=== PATIENT | female | born 1990 | race Caucasian/White ===

== ENCOUNTER 2017-01-01 10:32 | Outpatient (CLI) | payer MEDICAID ==
--- NOTE | 2017-01-01 14:19 | Ultrasound Report ---
OB FOLLOWUP WITH BIOPHYSICAL PROFILE: 01/01/2017 CLINICAL INDICATION: Hypertension. TECHNIQUE: Real-time scanning was performed with medical sales representative static images obtained. LAST MENSTRUAL PERIOD 04/08/2016 Clinical Age 38 weeks 2 days US Age 38 weeks 4 days EFW [place]lock 3518 g EFW% Hadlock 69% Heart Rate 150 bpm EDC 01/13/2017 US EDC 01/11/2017 BPD [place] 38 weeks 2 days; Mean mm 94.1 HC [place] 38 weeks 3 days; Mean mm 336.0 AC [place] 38 weeks 2 days; Mean mm 344.2 FL [place] 39 weeks 1 day; Mean mm 76.5 Presentation cephalic Placental Location posterior Cervical Length 2.6 cm Amniotic Fluid 12.2 cm FINDINGS: There is a single viable intrauterine gestation, in cephalic presentation. heart rate is 150 BPM. The placenta is fundal, without evidence of previa. Amniotic fluid volume is normal, with an EWA of 12.2. By size, the fetus measures 38.6 weeks (38.3 weeks by LMP). Estimated weight by Hadlock method is 3518 grams, 69th percentile. The fetus receives 2 points for tone, 2 points for movement, 0 points for respiration, and 2 points for amniotic fluid volume, yielding a biophysical profile of 6/8. No free fluid or adnexal lesion is appreciated. IMPRESSION: 1. SINGLE VIABLE INTRAUTERINE GESTATION, WITH SIZE IN KEEPING WITH LMP DATING. ESTIMATED WEIGHT OF 3518 GRAMS. 2. BIOPHYSICAL PROFILE OF 6/8. MTDD
== END 2017-01-01 10:33 | disposition home or self-care (01) ==
LOC: DI 10:32
PROVIDERS: ATTEND Midwife
DX: O13.9 Gestational [pregnancy-induced] hypertension without significant proteinuria, unspecified trimester (principal); Z3A.38 38 weeks gestation of pregnancy
CPT/HCPCS: 76816

== ENCOUNTER 2017-01-09 21:03 | Inpatient (IN) | payer MEDICAID ==
[2017-01-09] MEDS ORDERED: LIDOCAINE 1% 50 ML MDV ONE (21:11)
[2017-01-09] MEDS ORDERED: OXYTOCIN 10 UNIT/ML VIAL ONE (21:12)
[2017-01-09] MEDS ORDERED: OXYTOCIN/LACTATED RINGERS 250 ML IV ONE ×2 (23:17→23:24)
[2017-01-09] MEDS ORDERED: HYDROCORTISONE/PRAMOXINE 10 GM PR PRN (23:17)
[2017-01-09] MEDS ORDERED: HYDROCORTISONE 1% CREAM 28 GM TUBE PR PRN (23:17)
[2017-01-09] MEDS ORDERED: oxyCODONE 5 MG TABLET PO PRN (23:17)
[2017-01-09] MEDS ORDERED: WITCH HAZEL/GLYCERIN 1 EACH MED..PAD TOP PRN (23:17)
--- NOTE | 2017-01-09 23:28 | DELIVERY NOTE ---
Delivery Note - Infant Delivery Method Infant Delivery Method: positive: Spontaneous vaginal delivery - Presentation Presentation: positive: Vertex, ANA M - right occiput anterior, Other ( compound presentation. right hand) - Nuchal Cord Nuchal Cord: positive: None - Anesthetic Anesthetic Type: Anesthetic: positive: Lidocaine - 1% plain - Amniotic Fluid Description Amniotic Fluid Description: positive: Moderate meconium - Episiotomy Type Episiotomy Type: positive: None - Laceration Laceration: positive: Labial (bilateral) - Suture Suture Type: positive: Vicryl Suture Size: positive: 3-0 - Delivery Outcome Delivery Outcome: positive: Livebirth - [place]: positive: Placed in direct skin contact with mother, Suctioned, Warmed , [place] used sex: positive: Female (Apgars 8/9, 7 lb 6 oz) - Placenta Placenta: positive: Intact - Estimated Blood Loss Estimated Blood Loss (in cc): 200 - Delivery Comments (Free Text/Narrative) Delivery Comments (Free Text/Narrative): rapid delivery from presentation
[2017-01-09] MEDS: LACTATED RINGERS 1,000 ML IV SCH (23:37)
[2017-01-09 23:38] LABS: BILIRUBIN,URINE NEGATIVE (NEGATIVE)
[2017-01-09] MEDS: IBUPROFEN 800 MG TABLET PO SCH (23:39)
[2017-01-09 23:53] LABS: UR CULTURE IF IND NOT INDICATED; WBC,URINE 0-3 /HPF (0-5)
[2017-01-09 23:56] LABS: BASOPHILS % (AUTO) 0.1 %; EOSINOPHILS % (AUTO) 0.1 %; HCT - HEMATOCRIT 33.1 % (37.0-47.0); HGB - HEMOGLOBIN 10.7 g/dL (12.0-16.0); LYMPHOCYTES # (AUTO) 1.3 10^3/uL (1.5-3.5); LYMPHOCYTES % (AUTO) 4.9 %; MEAN CORPUSCULAR HEMOGLOBIN 24.1 pg (27.0-31.0); MEAN CORPUSCULAR HGB CONC 32.3 g/dL (32.0-36.0); MEAN CORPUSCULAR VOLUME 74.7 fL (81.0-99.0); MEAN PLATELET VOLUME 8.7 fL (7.9-10.8); MONOCYTES # (AUTO) 1.5 10^3/uL (0.0-1.0); MONOCYTES % (AUTO) 5.5 %; NEUTROPHILS # (AUTO) 23.6 10^3/uL (1.5-6.6); NEUTROPHILS % (AUTO) 89.4 %; RED BLOOD COUNT 4.43 10^6/uL (4.20-5.40); RED CELL DISTRIBUTION WIDTH 16.7 % (12.0-15.0); UNCORRECTED WHITE BLOOD COUNT 26.4 x10^3/uL; WHITE BLOOD COUNT 26.4 x10^3/uL (4.8-10.8)
[2017-01-10 00:05] LABS: ALBUMIN/GLOBULIN RATIO 0.8 (1.0-2.2); BILIRUBIN,TOTAL 0.5 mg/dL (0.2-1.0); CALCIUM 9.5 mg/dL (8.5-10.3); CREATININE 0.5 mg/dL (0.4-1.0); POTASSIUM 4.2 mmol/L (3.5-5.0); TOTAL PROTEIN 6.9 g/dL (6.7-8.2); URIC ACID 3.3 mg/dL (2.6-7.2)
[2017-01-10 00:50] LABS: NP AUTO DIFFERENTIAL? NO; NP MAN DIFFERENTIAL? YES; PLATELET ESTIMATE, MANUAL NORMAL (130-450,000) (NORMAL); PLATELET MORPHOLOGY 1+ LARGE PLATELETS (NORMAL)
[2017-01-10] MEDS: ACETAMINOPHEN 325 MG TABLET PO PRN ×5 (02:29→22:14)
[2017-01-10] MEDS: IBUPROFEN 800 MG TABLET PO SCH ×3 (06:31→18:35)
[2017-01-10] MEDS: SIMETHICONE CHEW 80 MG TABLET PO SCH ×3 (06:46→18:35)
[2017-01-10] MEDS: DOCUSATE SODIUM 100 MG CAPSULE PO SCH ×2 (08:54→22:14)
[2017-01-10] MEDS: buPROPion SR 100 MG TABLET PO SCH (08:54)
--- NOTE | 2017-01-10 10:50 | PROVIDER PROGRESS NOTE ---
Subjective - Prog Note Date Prog Note Date: 01/10/17 Prog Note Time: 10:45 - Subjective Pt reports feeling: Improved Subjective: Pt annia MCDONALD. Notes 4/10 pain. C/O cramping with breast feeding. notes good pain control with meds. Pt to take own supply of clindamycin 150 mg qid. Objective - Vital Signs/Intake & Output Reviewed Vital Signs: Yes Vital Signs: Vital Signs x48h Temp Pulse Resp BP Pulse Ox 01/10/17 08:00 36.4 C L 88 16 127/71 99 01/10/17 06:30 36.5 C 94 16 123/69 100 Intake & Output: Intake & Output 01/07/17 01/08/17 01/09/17 01/10/17 23:59 23:59 23:59 23:59 Intake Total 850 Output Total 400 1290 Balance -400 -440 - Objective General Appearance: positive: No acute distress, Alert Respiratory: positive: Chest non-tender, No respiratory distress, Breath sounds nml Cardiovascular: positive: Regular rate & rhythm, No murmur, No gallop Abdomen: positive: Non-tender, No organomegaly, Mass (at U) Extremities: positive: Non-tender. negative: Calf tenderness, Vicky's sign/ cords Reflexes: Knee (R): 3+, Knee (L): 3+ - Lab Results Fish Bones: 01/09/17 23:05 01/09/17 23:05 Other Labs: Lab Results x24hrs 01/09/17 01/09/17 01/09/17 Range/Units 23:05 23:05 23:05 WBC 26.4 H (4.8-10.8) x10^3/uL RBC 4.43 (4.20-5.40) 10^6/uL Hgb 10.7 L (12.0-16.0) g/dL Hct 33.1 L (37.0-47.0) % MCV 74.7 L (81.0-99.0) fL MCH 24.1 L (27.0-31.0) pg MCHC 32.3 (32.0-36.0) g/dL RDW 16.7 H (12.0-15.0) % Plt Count 298 (130-450) 10^3/uL MPV 8.7 (7.9-10.8) fL Neut # 23.6 H (1.5-6.6) 10^3/uL Lymph # 1.3 L (1.5-3.5) 10^3/uL [place] # 1.5 H (0.0-1.0) 10^3/uL Eos # 0.0 (0.0-0.7) 10^3/uL Baso # 0.0 (0.0-0.1) 10^3/uL Absolute Nucleated RBC 0.00 x10^3/uL Band Neuts % (Manual) Not Reportable Nucleated RBCs 0.0 /100WBC Differential Comment MANUAL=AUTO DIFF Platelet Estimate NORMAL (130-450,000) (NORMAL) Platelet Morphology 1+ LARGE PLATELETS (NORMAL) RBC Morph Micro Appear NORMAL APPEARANCE (NORMAL) Sodium 133 L (135-145) mmol/L Potassium 4.2 (3.5-5.0) mmol/L Chloride 104 (101-111) mmol/L Carbon Dioxide 21 (21-32) mmol/L Anion Gap 8.0 (6-13) BUN 10 (6-20) mg/dL Creatinine 0.5 (0.4-1.0) mg/dL Estimated GFR (MDRD) 150 (>89) Glucose 94 (70-100) mg/dL Uric Acid 3.3 (2.6-7.2) mg/dL Calcium 9.5 (8.5-10.3) mg/dL Total Bilirubin 0.5 (0.2-1.0) mg/dL AST 19 (10-42) IU/L ALT 13 (10-60) IU/L Alkaline Phosphatase 138 H (42-121) IU/L Total Protein 6.9 (6.7-8.2) g/dL Albumin 3.0 L (3.2-5.5) g/dL Globulin 3.9 (2.1-4.2) g/dL Albumin/Globulin Ratio 0.8 L (1.0-2.2) Urine Color Urine Clarity (CLEAR) Urine pH (5.0-7.5) PH Ur Specific [place] (1.002-1.030) Urine Protein (NEGATIVE) mg/dL Urine Glucose (UA) (NEGATIVE) mg/dL Urine Ketones (NEGATIVE) mg/dL Urine Occult Blood (NEGATIVE) Urine Nitrite (NEGATIVE) Urine Bilirubin (NEGATIVE) Urine Urobilinogen (NORMAL) E.U./dL Ur Leukocyte Esterase (NEGATIVE) Urine RBC (0-5) /HPF Urine WBC (0-5) /HPF Ur Squamous Epith Cells (<= Few) Urine Bacteria (None Seen) /HPF Urine Mucus Urine Culture Comments Urine Creatinine mg/dL Ur Total Protein Timed mg/dL Protein/Creatinin Ratio (<=0.2) Blood Type O NEGATIVE Antibody Screen NEGATIVE 01/09/17 01/09/17 Range/Units 22:35 22:35 WBC (4.8-10.8) x10^3/uL RBC (4.20-5.40) 10^6/uL Hgb (12.0-16.0) g/dL Hct (37.0-47.0) % MCV (81.0-99.0) fL MCH (27.0-31.0) pg MCHC (32.0-36.0) g/dL RDW (12.0-15.0) % Plt Count (130-450) 10^3/uL MPV (7.9-10.8) fL Neut # (1.5-6.6) 10^3/uL Lymph # (1.5-3.5) 10^3/uL [place] # (0.0-1.0) 10^3/uL Eos # (0.0-0.7) 10^3/uL Baso # (0.0-0.1) 10^3/uL Absolute Nucleated RBC x10^3/uL Band Neuts % (Manual) Nucleated RBCs /100WBC Differential Comment Platelet Estimate (NORMAL) Platelet Morphology (NORMAL) RBC Morph Micro Appear (NORMAL) Sodium (135-145) mmol/L Potassium (3.5-5.0) mmol/L Chloride (101-111) mmol/L Carbon Dioxide (21-32) mmol/L Anion Gap (6-13) BUN (6-20) mg/dL Creatinine (0.4-1.0) mg/dL Estimated GFR (MDRD) (>89) Glucose (70-100) mg/dL Uric Acid (2.6-7.2) mg/dL Calcium (8.5-10.3) mg/dL Total Bilirubin (0.2-1.0) mg/dL AST (10-42) IU/L ALT (10-60) IU/L Alkaline Phosphatase (42-121) IU/L Total Protein (6.7-8.2) g/dL Albumin (3.2-5.5) g/dL Globulin (2.1-4.2) g/dL Albumin/Globulin Ratio (1.0-2.2) Urine Color YELLOW Urine Clarity CLEAR (CLEAR) Urine pH 6.0 (5.0-7.5) PH Ur Specific [place] 1.025 (1.002-1.030) Urine Protein TRACE (NEGATIVE) mg/dL Urine Glucose (UA) NEGATIVE (NEGATIVE) mg/dL Urine Ketones NEGATIVE (NEGATIVE) mg/dL Urine Occult Blood TRACE-INTA (NEGATIVE) Urine Nitrite NEGATIVE (NEGATIVE) Urine Bilirubin NEGATIVE (NEGATIVE) Urine Urobilinogen 0.2 (NORMAL) (NORMAL) E.U./dL Ur Leukocyte Esterase NEGATIVE (NEGATIVE) Urine RBC 0-5 (0-5) /HPF Urine WBC 0-3 (0-5) /HPF Ur Squamous Epith Cells NONE SEEN (<= Few) Urine Bacteria None Seen (None Seen) /HPF Urine Mucus Few Strands Urine Culture Comments NOT INDICATED Urine Creatinine 122.3 mg/dL Ur Total Protein Timed 31 mg/dL Protein/Creatinin Ratio 0.3 H (<=0.2) Blood Type Antibody Screen Assessment/Plan - Problem List (1) (spontaneous vaginal delivery) Impression: pt is recovering well breast feeding (2) Chronic hypertension during Impression: B/P normalizing without anti hypertensive medication will follow B/P (3) Pre-eclampsia added to pre-existing hypertension Impression: Pt has protenuria with P/C ratio of .3 will follow B/P.
[2017-01-10] MEDS: CLINDAMYCIN 150 MG CAPSULE PO SCH ×2 (11:28→18:35)
[2017-01-10] MEDS: LACTATED RINGERS 1,000 ML IV SCH ×2 (12:36→20:39)
[2017-01-11] MEDS: IBUPROFEN 800 MG TABLET PO SCH ×3 (00:20→12:11)
[2017-01-11] MEDS: CLINDAMYCIN 150 MG CAPSULE PO SCH ×3 (00:20→12:11)
[2017-01-11] MEDS: ACETAMINOPHEN 325 MG TABLET PO PRN ×3 (04:30→12:12)
[2017-01-11] MEDS: DOCUSATE SODIUM 100 MG CAPSULE PO SCH (09:23)
[2017-01-11] MEDS: buPROPion SR 100 MG TABLET PO SCH (09:23)
[2017-01-11] MEDS: SIMETHICONE CHEW 80 MG TABLET PO SCH ×2 (09:23→15:21)
--- NOTE | 2017-01-11 11:42 | PROVIDER PROGRESS NOTE ---
Subjective - Prog Note Date Prog Note Date: 01/11/17 Prog Note Time: 11:38 - Subjective Pt reports feeling: Improved (pt notes cramping with breast feeding. Pain /10. notes good pain control) Objective - Vital Signs/Intake & Output Reviewed Vital Signs: Yes Vital Signs: Vital Signs x48h Temp Pulse Resp BP Pulse Ox 01/11/17 07:48 36.4 C L 95 18 127/78 95 Intake & Output: Intake & Output 01/08/17 01/09/17 01/10/17 01/11/17 23:59 23:59 23:59 23:59 Intake Total 850 Output Total 400 1290 Balance -400 -440 - Objective General Appearance: positive: No acute distress, Alert Eyes Bilateral: positive: Normal inspection Respiratory: positive: Chest non-tender, No respiratory distress, Breath sounds nml Cardiovascular: positive: Regular rate & rhythm, No murmur, No gallop Abdomen: positive: Non-tender, No distention, Mass (U-3 nontender) Extremities: negative: Calf tenderness, Vicky's sign/cords - Lab Results Fish Bones: 01/09/17 23:05 01/09/17 23:05 Assessment/Plan - Problem List (1) (spontaneous vaginal delivery) Impression: progressing well breast feeding Discussed contraception. wants nexplanon Discharge meds: Percocet 5/325 #15 Motrin 800 mg colace 100 mg Followup with Trisha Blackmon (3) Chronic hypertension during Impression: BP normalizing will need to followup wiht Trisha Blackmon
--- NOTE | 2017-01-11 12:03 | Discharge Plan ---
Discharge Plan Disposition: 01 Home, Self Care Condition: Good Diet: Regular Shower Restrictions: No (rest) Driving Restrictions: No Weight Bearing: Full Weight No Smoking: If you smoke, Please STOP! Call for help.
[2017-01-11 15:22] VITALS: BP 134/78
--- NOTE | 2017-01-11 15:55 | Labor Flowsheet ---
Labor Flowsheet Datetime Report Generated by CPN: 01/11/2017 15:55 Datetime: 01/11/2017 15:20 VITAL SIGNS NBP Sys/Britta/Mean (mmHg): 154 : 90 : 102 Pulse: 101 SpO2 (%): 100 Datetime: 01/11/2017 07:44 Temperature (F): 97.0 Temperature (C): 36.1 Temperature (C): 36.1
--- NOTE | 2017-01-12 09:42 | HISTORY & PHYSICAL EXAMINATION ---
DATE OF ADMISSION/SURGERY: 01/09/2017. IDENTIFICATION: The patient is a 26-year-old G3, P2, AB1 female whose last menstrual period was 08 April. This gave her an EDC of December,. The patient presents with strong uterine contractions. The patient states that roughly 20-2300 she developed strong contractions every 3 minutes. She spontaneously ruptured her membranes at 2044. She presented to Labor and Delivery at 2100. She was checked very soon thereafter at 2109 and was noted to be complete and +2. The patient was able to breathe through 2 additional contractions. She pushed well through 1 contraction and at 2119 delivered a live female , 's 8 and 9, weighing 7 pounds 6 ounces. She delivered placenta at 21:28. The placenta was inspected and noted to be intact. She received Pitocin IM. No IV had been able to be placed. At the time of delivery the head was noted to be ANA M and there was a compound right hand noted at the same time of delivery. She suffered 2 periurethral lacerations. She had receive RhoGAM because she was RH negative. PRESENTING HISTORY: The patient started her OB care at [address] Henao. She had early ultrasound. She had negative study for Down's, as well as neural tube defects. She was noted to have some elevated blood pressures at roughly 28 weeks and was started on labetalol 100 mg p.o. b.i.d. She switched her care to Trisha Blackmon in November. She felt that she did not need the labetalol and stopped, but her hypertension returned, so she was reinitiated on her labetalol. She had 28-week labs which showed a normal 50 gram Glucola. The remainder of her OB care was unremarkable. She did have an NST at 38 weeks because of decreased motion. Also had an ultrasound ordered at that time which showed concordant growth. She did not receive any other NSTs. This patient was on Wellbutrin during her because of a history of depression. PAST MEDICAL HISTORY: She denies any chronic hypertension, but does have a history of having hypertension with a previous . She also has a history of heartburn. SURGICAL HISTORY: Positive for tonsils. ALLERGIES: 1. PENICILLIN. 2. ERYTHROMYCIN. CURRENT MEDICATIONS: 1. vitamins. 2. Labetalol 100 mg p.o. b.i.d. 3. Wellbutrin. 4. She has also taken omeprazole. HABITS: The patient denies use of alcohol, tobacco, or street or addictive drugs. SOCIAL HISTORY: The patient is a homemaker. Has been in a stable relationship with the same man for the last 3 years, however, is not . FAMILY HISTORY: Positive for diabetes. PHYSICAL EXAMINATION: Well-developed, well-nourished, obese female. She is in no acute distress at this time. She has recently delivered a live female . HEART: Regular rate and rhythm, without murmurs. LUNGS: Lung ferguson are clear without rales or wheezes. ABDOMEN: Soft, nontender. Uterus is firm, roughly 3 cm below the umbilicus. EXTREMITIES: DTRs are 3+ and symmetric. She has no clonus at this time. She has some mid swelling of the ankles. IMPRESSION: 1. Recently delivered 26-year-old G3, P2 female who delivered at 39 weeks and 3 days. 2. Chronic hypertension currently on beta blockers. 3. History of depression. 4. RH negative. 5. Heartburn on omeprazole. PLAN: Will obtain [facility] labs to include a protein creatinine ratio. Will also obtain a cath specimen for this. Will monitor blood pressures looking for evidence of pre-eclampsia. JOB #: [id number] EXT JOB #:[id number] VANESA
== END 2017-01-11 15:53 | disposition home or self-care (01) | DRG 774 ==
LOC: WFO 21:03 → OB 21:05
PROVIDERS: ADMIT Obstetrics & Gynecology; ATTEND Obstetrics & Gynecology
PROC: 10E0XZZ Delivery of Products of Conception, External Approach (ICD-10-PCS; principal; 2017-01-09)
PROC: 0HQ9XZZ Repair Perineum Skin, External Approach (ICD-10-PCS; 2017-01-09)
DX: O11.4 Pre-existing hypertension with pre-eclampsia, complicating childbirth (principal); O10.92 Unspecified pre-existing hypertension complicating childbirth; O62.3 Precipitate labor; O32.6XX0 Maternal care for compound presentation, not applicable or unspecified; O77.0 Labor and delivery complicated by meconium in amniotic fluid; O71.82 Other specified trauma to perineum and vulva; O99.214 Obesity complicating childbirth; Z68.36 Body mass index [BMI] 36.0-36.9, adult; O99.344 Other mental disorders complicating childbirth; F32.9 Major depressive disorder, single episode, unspecified; O99.62 Diseases of the digestive system complicating childbirth; R12 Heartburn; O26.893 Other specified pregnancy related conditions, third trimester; Z67.91 Unspecified blood type, Rh negative; Z3A.39 39 weeks gestation of pregnancy; Z37.0 Single live birth
CPT/HCPCS: 80053; 81001; 82570; 84156; 84550; 85025; 86850; 86900; 86901; 87086; 99213